=== PATIENT | male | born 1950 | race Caucasian/White ===

== ENCOUNTER 2019-05-02 02:22 | Observation (INO) ==
--- NOTE | 2019-05-02 03:17 | Internal Med History&Physical ---
Date of Encounter: 05/02/19 Time of Encounter: 03:16 Internal Medicine - H&P: HPI Chief complaint: tired Plans for Post Hospital Care: Home History of present illness: Dionte Weems is a 68 year old man who reports no past medical history transferred here from [facility] for anemia. He states that for the past 1 week he has been significantly more fatigued, lightheaded, dizzy and intolerant of exertion. He went to his PCP on who sent routine labs on Saturday morning recommended he go to the ER after it showed significant anemia. Over there he was old his Hgb was 5.2. His stool was positive for occult blood. He denies any abdominal pain, nausea, vomiting, hematemesis or noticing darker stool. He was given 2U pRBC prior to his arrival here. On my assessment he reports feeling well and has no complaints. Vitals: Reviewed General: Well-developed white male sitting up in the acute distress. Skin: Pale, Warm and dry. HEENT: Moist mucous membranes. + conjunctivae pallor. Neck: No lymphadenopathy. No JVD. No carotid bruits. No palpable thyroid. Chest: Normal thoracic expansion. Normal breath sounds. Clear to auscultation. Heart: Normal S1 & S2; rhythmic. No rubs or murmurs. Abdomen: Non-distended, soft and non-tender to palpation. No peritoneal reaction. Extremities: No clubbing, cyanosis or edema. No calf tenderness. Normal distal pulses. Neurological: Awake, alert and oriented to person, place and time. No focal d eficits. Psych: Affect appropriate. Assessment/Plan 1. Acute posthemorrhagic anemia: Secondary to GI bleed. S/p 2U pRBC. Will recheck H/H now and in 4 hours to assess for stability. Keep on IVF. 2. GI bleed: Unclear etiology. Concern that it may be a slow bleeding lesion from the upper tract, perhaps an AVM. All the same will consult GI for endoscopic evaluation, keep NPO and start pantoprazole 40mg BID. 3. RLS: On Requip. 4. DVT prophlaxis: Calf pumps. Past Med Surg Social Fam HX - Past Medical History Additional medical history: Restless leg syndrome Psychiatric history: no psych history - Past Surgical History Additional surgical history: bilateral inguinal hernia repair - Social History Smoking Status: Never smoker Smokeless Tobacco Status: No Alcohol use: occasionally Drug use: none Internal Medicine - H&P: Meds Requip 05/02/19 [History] Allergy/AdvReac Type Severity Reaction Status Date / Time No Known Allergies Allergy Verified 05/02/19 02:59 All Systems PM: A 10-system review of systems was performed and is negative for pertinent findings except as documented above in the HPI. Family history reviewed and found non-contributory. - Constitutional Vitals: Temp Pulse Resp BP Pulse Ox 98.4 F 74 18 125/74 99 05/02/19 02:57 05/02/19 02:57 05/02/19 02:57 05/02/19 02:57 05/02/19 02:57 Exam: . - Time Spent With Patient Total time spent is greater than 50% in coordination of care (as documented) at patient's floor/unit and/or counseling patient: Greater than 35 minutes
[2019-05-02] MEDS: 0.9 % Sodium Chloride 1,000 ML IVC SCH ×2 (04:06→12:29)
[2019-05-02 04:49] LABS: Basophils # 0.1 K/mcL (0.0-0.2); Basophils % 0.8 %; Eosinophils # 0.1 K/mcL (0.0-0.6); Eosinophils % 1.1 %; Hematocrit 25.9 % (37.5-50.1); Hemoglobin 7.5 g/dL (12.9-16.9); Immature Granulocytes % 0.4 % (0-4); Lymphocytes # 1.6 K/mcL (0.6-4.6); Lymphocytes % 22.9 %; Mean Corpuscular Volume 72.5 fL (83.0-100.0); Mean Platelet Volume 9.6 fL (9.4-12.4); Monocytes # 0.9 K/mcL (0.0-1.3); Monocytes % 12.7 %; Neutrophils # 4.4 K/mcL (1.6-8.9); Nucleated Red Blood Cells 0.4 /100 WBC (0); Platelet Count 371 K/mcL (140-400); Red Blood Count 3.57 M/mcL (4.19-5.50); Red Cell Distribution Width 19.6 % (11.5-14.5); Segmented Neutrophils % 62.1 %; White Blood Count 7.1 K/mcL (4.3-11.1)
[2019-05-02 04:56] LABS: Prothrombin Time 11.8 Seconds (9.4-12.1)
[2019-05-02 04:58] LABS: Activated Partial Thrombo Time 26.5 Seconds (26.0-36.0)
[2019-05-02 05:09] LABS: Alanine Aminotransferase 25 Units/L (7-52); Albumin/Globulin Ratio 1.6 (1.1-2.2); Alkaline Phosphatase 31 Units/L (34-104); Aspartate Amino Transferase 21 Units/L (13-39); BUN/Creatinine Ratio 13 (6-26); Bilirubin,Direct 0.2 mg/dL (0.0-0.2); Bilirubin,Indirect 0.7 mg/dL (0.0-1.2); Bilirubin,Total 0.9 mg/dL (0.3-1.0); Blood Urea Nitrogen 13 mg/dL (8-23); Calcium 8.8 mg/dL (8.6-10.3); Carbon Dioxide 22 mEq/L (23-29); Chloride 109 mEq/L (98-107); Globulin 2.5 g/dL (2.4-3.5); Glucose 113 mg/dL (70-105); Osmolality,Calculated 289 (280-300); Potassium 3.8 mEq/L (3.5-5.1); Sodium 139 mEq/L (136-145); Total Protein 6.5 g/dL (6.4-8.9); eGFR For African Americans > 60 (> 60); eGFR For Non-African Americans > 60 (> 60)
[2019-05-02] MEDS: Pantoprazole 40 MG VIAL IVP SCH ×2 (06:25→18:16)
[2019-05-02 08:01] LABS: Hematocrit 26.2 % (37.5-50.1); Hemoglobin 7.5 g/dL (12.9-16.9)
[2019-05-02 12:18] LABS: Hematocrit 26.2 % (37.5-50.1); Hemoglobin 7.5 g/dL (12.9-16.9)
--- NOTE | 2019-05-02 16:44 | Event Note ---
Date of Encounter: 05/02/19 Time of Encounter: 11:30 Mr Weems was admitted earlier this AM due to acute anemia and possible GI bleed. Mr Weems feels OK. His is up and walking around. Hungry. No fever or chills. Concerned about staying here till next week. Exam Alert Comfortable Mucus membranes dry Heart reg and not tachy No wheeze abd soft I/P 1. Anemia - most likely related to chronic blood loss. 2. Probable GI bleed. Agree with assessment and plan as per H&P
--- NOTE | 2019-05-02 17:02 | AcuteCare Surgery Consult Note ---
<Shavonne Smith P - Last Filed: 05/02/19 17:09> Date of Encounter: 05/02/19 Time of Encounter: 04:30 Assessment and Plan (1) GI bleed Current Visit: Yes Status: Acute * This patient has h./o fatigued, lightheaded, dizzy and intolerant of exertion. his Hgb was 5.2. His stool was positive for occult blood. * His hemoglobin at hospital is 7.5 and hematocrit 26.2 * Acute care surgical team was consulted for lower GI bleed. * His vitals are stable blood pressure 118/76, pulse 70/m Plan : We are planning to do a scope tomorrow : Bowel preparation and nothing by mouth from midnight : Trends labs including hemoglobin History of Present Illness Consult date: 05/02/19 Reason for consult: other History of present illness: He is 68 year old man who reports no past medical history transferred here from [facility] for anemia, He has h/o fatigued, lightheaded, dizzy and intolerant of exertion.His Hgb was 5.2. His stool was positive for occult blood. Acute Surgical team was consulted for suspected GI bleed. His hemoglobin at hospital is 7.5 and HCT 26.2, his vitals are stable. We are planning to do a scope tomorrow. He will be nothing by mouth from midnight and bowel preparation with MiraLAX. Past Med Surg Social Fam HX - Past Medical History Additional medical history: Restless leg syndrome Psychiatric history: no psych history - Past Surgical History Additional surgical history: bilateral inguinal hernia repair - Social History Smoking Status: Never smoker Smokeless Tobacco Status: No Alcohol use: occasionally Drug use: none Medications and Allergies Requip 05/02/19 [History] Allergy/AdvReac Type Severity Reaction Status Date / Time No Known Allergies Allergy Verified 05/02/19 02:59 Review of Systems All systems PM: The remainder of the systems were reviewed and are negative General Surgery Exam Initial Vital Signs Temp Pulse Resp BP Pulse Ox 98.4 F 74 18 125/74 99 05/02/19 02:57 05/02/19 02:57 05/02/19 02:57 05/02/19 02:57 05/02/19 02:57 - General physical appearance well nourished, no distress, moderate pain - Eyes PERRL, normal ocular movement - ENT normal mucosa - Neck trachea midline, no lymphadectomy - Respiratory normal expansion, normal respiratory effort, clear to percussion - Cardiovascular Cardiovascular exam: Present: RRR, regular rhythm, no murmurs/rubs/gallops - Abdomen Abdomen general surgery: Present: soft, non tender, distended, tender - Integumentary Integumentary general surgery: Present: warm and dry - Neurologic Present: CN 2-12 grossly intact, normal coordination, normal sensation - Musculoskeletal Present: normal gait, normal posture - Psychiatric Psychiatric general surgery: Present: A&Ox3, appropriate, oriented to person, oriented to place Exam Initial Vital Signs Temp Pulse Resp BP Pulse Ox 98.4 F 74 18 125/74 99 05/02/19 02:57 05/02/19 02:57 05/02/19 02:57 05/02/19 02:57 05/02/19 02:57 Results - Labs 05/02/19 11:59 05/02/19 04:08 Abnormal lab results RBC 3.57 M/mcL (4.19-5.50) L 05/02/19 04:08 Hgb 7.5 g/dL (12.9-16.9) L 05/02/19 11:59 Hct 26.2 % (37.5-50.1) L 05/02/19 11:59 MCV 72.5 fL (83.0-100.0) L 05/02/19 04:08 MCH 21.0 pg (28.0-33.3) L 05/02/19 04:08 MCHC 29.0 g/dL (31.6-35.5) L 05/02/19 04:08 RDW 19.6 % (11.5-14.5) H 05/02/19 04:08 Nucleated RBCs/100 WBC 0.4 /100 WBC (0) H 05/02/19 04:08 Chloride 109 mEq/L (98-107) H 05/02/19 04:08 Carbon Dioxide 22 mEq/L (23-29) L 05/02/19 04:08 Glucose 113 mg/dL (70-105) H 05/02/19 04:08 POC Glucose 116 mg/dL (70-99) H 05/02/19 05:47 31 Units/L (34-104) L 05/02/19 04:08 Diabetes panel 05/02/19 Range/Units 04:08 Sodium 139 (136-145) mEq/L Potassium 3.8 (3.5-5.1) mEq/L Chloride 109 H (98-107) mEq/L Carbon Dioxide 22 L (23-29) mEq/L BUN 13 (8-23) mg/dL Creatinine 0.99 (0.70-1.30) mg/dL Glucose 113 H (70-105) mg/dL Calcium 8.8 (8.6-10.3) mg/dL AST 21 (13-39) Units/L ALT 25 (7-52) Units/L Alkaline Phosphatase 31 L (34-104) Units/L Albumin 4.0 (3.5-5.7) g/dL Calcium panel 05/02/19 Range/Units 04:08 Calcium 8.8 (8.6-10.3) mg/dL Albumin 4.0 (3.5-5.7) g/dL Pituitary panel 05/02/19 Range/Units 04:08 Sodium 139 (136-145) mEq/L Potassium 3.8 (3.5-5.1) mEq/L Chloride 109 H (98-107) mEq/L Carbon Dioxide 22 L (23-29) mEq/L BUN 13 (8-23) mg/dL Creatinine 0.99 (0.70-1.30) mg/dL Glucose 113 H (70-105) mg/dL Calcium 8.8 (8.6-10.3) mg/dL Adrenal panel 05/02/19 Range/Units 04:08 Sodium 139 (136-145) mEq/L Potassium 3.8 (3.5-5.1) mEq/L Chloride 109 H (98-107) mEq/L Carbon Dioxide 22 L (23-29) mEq/L BUN 13 (8-23) mg/dL Creatinine 0.99 (0.70-1.30) mg/dL Glucose 113 H (70-105) mg/dL Calcium 8.8 (8.6-10.3) mg/dL Total Bilirubin 0.9 (0.3-1.0) mg/dL AST 21 (13-39) Units/L ALT 25 (7-52) Units/L Alkaline Phosphatase 31 L (34-104) Units/L Albumin 4.0 (3.5-5.7) g/dL All other labs normal. Consult Discharge Plan - Plan Referrals: NONE,PCP [Primary Care Provider] - <Juarez Bailey - Last Filed: 05/02/19 17:56> Date of Encounter: 05/02/19 Review of Systems All systems PM: The remainder of the systems were reviewed and are negative General Surgery Exam Initial Vital Signs Temp Pulse Resp BP Pulse Ox 98.4 F 74 18 125/74 99 05/02/19 02:57 05/02/19 02:57 05/02/19 02:57 05/02/19 02:57 05/02/19 02:57 Exam Initial Vital Signs Temp Pulse Resp BP Pulse Ox 98.4 F 74 18 125/74 99 05/02/19 02:57 05/02/19 02:57 05/02/19 02:57 05/02/19 02:57 05/02/19 02:57 Results - Labs 05/02/19 16:57 05/02/19 04:08 Abnormal lab results RBC 3.57 M/mcL (4.19-5.50) L 05/02/19 04:08 Hgb 7.4 g/dL (12.9-16.9) L 05/02/19 16:57 Hct 26.1 % (37.5-50.1) L 05/02/19 16:57 MCV 72.5 fL (83.0-100.0) L 05/02/19 04:08 MCH 21.0 pg (28.0-33.3) L 05/02/19 04:08 MCHC 29.0 g/dL (31.6-35.5) L 05/02/19 04:08 RDW 19.6 % (11.5-14.5) H 05/02/19 04:08 Nucleated RBCs/100 WBC 0.4 /100 WBC (0) H 05/02/19 04:08 Chloride 109 mEq/L (98-107) H 05/02/19 04:08 Carbon Dioxide 22 mEq/L (23-29) L 05/02/19 04:08 Glucose 113 mg/dL (70-105) H 05/02/19 04:08 POC Glucose 116 mg/dL (70-99) H 05/02/19 05:47 31 Units/L (34-104) L 05/02/19 04:08 Diabetes panel 05/02/19 Range/Units 04:08 Sodium 139 (136-145) mEq/L Potassium 3.8 (3.5-5.1) mEq/L Chloride 109 H (98-107) mEq/L Carbon Dioxide 22 L (23-29) mEq/L BUN 13 (8-23) mg/dL Creatinine 0.99 (0.70-1.30) mg/dL Glucose 113 H (70-105) mg/dL Calcium 8.8 (8.6-10.3) mg/dL AST 21 (13-39) Units/L ALT 25 (7-52) Units/L Alkaline Phosphatase 31 L (34-104) Units/L Albumin 4.0 (3.5-5.7) g/dL Calcium panel 05/02/19 Range/Units 04:08 Calcium 8.8 (8.6-10.3) mg/dL Albumin 4.0 (3.5-5.7) g/dL Pituitary panel 05/02/19 Range/Units 04:08 Sodium 139 (136-145) mEq/L Potassium 3.8 (3.5-5.1) mEq/L Chloride 109 H (98-107) mEq/L Carbon Dioxide 22 L (23-29) mEq/L BUN 13 (8-23) mg/dL Creatinine 0.99 (0.70-1.30) mg/dL Glucose 113 H (70-105) mg/dL Calcium 8.8 (8.6-10.3) mg/dL Adrenal panel 05/02/19 Range/Units 04:08 Sodium 139 (136-145) mEq/L Potassium 3.8 (3.5-5.1) mEq/L Chloride 109 H (98-107) mEq/L Carbon Dioxide 22 L (23-29) mEq/L BUN 13 (8-23) mg/dL Creatinine 0.99 (0.70-1.30) mg/dL Glucose 113 H (70-105) mg/dL Calcium 8.8 (8.6-10.3) mg/dL Total Bilirubin 0.9 (0.3-1.0) mg/dL AST 21 (13-39) Units/L ALT 25 (7-52) Units/L Alkaline Phosphatase 31 L (34-104) Units/L Albumin 4.0 (3.5-5.7) g/dL All other labs normal. - Attending Attestation patient seen and examined. i have reviewed all labs, imaging, and notes. i agree with the above assessment and plan.
[2019-05-02 17:10] LABS: Hematocrit 26.1 % (37.5-50.1); Hemoglobin 7.4 g/dL (12.9-16.9)
[2019-05-03] MEDS: Pantoprazole 40 MG VIAL IVP SCH (05:09)
[2019-05-03 05:30] LABS: Hemoglobin 7.5 g/dL (12.9-16.9)
[2019-05-03 05:31] LABS: Hematocrit 26.8 % (37.5-50.1); Mean Corpuscular Hemoglobin 20.4 pg (28.0-33.3); Mean Platelet Volume 9.4 fL (9.4-12.4); Platelet Count 404 K/mcL (140-400); Red Blood Count 3.67 M/mcL (4.19-5.50); Red Cell Distribution Width 19.6 % (11.5-14.5); White Blood Count 6.3 K/mcL (4.3-11.1)
[2019-05-03 06:21] LABS: BUN/Creatinine Ratio 9 (6-26); Blood Urea Nitrogen 10 mg/dL (8-23); Calcium 9.1 mg/dL (8.6-10.3); Carbon Dioxide 25 mEq/L (23-29); Chloride 109 mEq/L (98-107); Glucose 116 mg/dL (70-105); Magnesium 2.2 mg/dL (1.6-2.6); Osmolality,Calculated 290 (280-300); Potassium 3.7 mEq/L (3.5-5.1); Sodium 140 mEq/L (136-145); eGFR For African Americans > 60 (> 60); eGFR For Non-African Americans > 60 (> 60)
[2019-05-03] MEDS ORDERED: *HR* FentaNYL (PF) 100 MCG/2 ML VIAL ONE (07:44)
[2019-05-03] MEDS ORDERED: Simethicone 40 MG/0.6 ML MLS IR ONE (07:59)
[2019-05-03] MEDS ORDERED: Tetracaine/Benzocaine/Butamben 1 SPRAY AEROSOL MM ONE (08:03)
[2019-05-03] MEDS: *HR* Midazolam HCl 5 MG/5 ML VIAL IVP ONE ×2 (08:31→08:48)
[2019-05-03 11:32] VITALS: BP 122/80
--- NOTE | 2019-05-03 12:00 | Discharge Summary ---
- NOTES TO OUTPATIENT PROVIDER Notes to Outpatient Provider: Pt admitted with anemia. He underwent EGD/colonoscopy and had Grade 1 esophagitis. PPI started. 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 Weems is a 68 year old male transferred to [place] due to anemia. He was n oted to be guiac positive. Mr Weems was admitted to [facility]. He was started on fluids and H/H followed. He was seen by surgery and had EGD/colonoscopy. Found to have diverticulosis and [place] grade A esophagitis. His H/H is stable and he is ready for discharge home on PPI. - Time Spent with Patient Total time spent providing and/or coordinating discharge services: 35min - Discharge Medications Prescriptions: New Omeprazole [PriLOSEC] 40 mg PO DAILY@0630 #30 capsule.dr Stein Requip Home Medications: Requip 05/02/19 [History] Omeprazole [PriLOSEC] 40 mg PO DAILY@0630 #30 capsule. 05/03/19 [Rx] Allergies/Adverse Reactions: Allergy/AdvReac Type Severity Reaction Status Date / Time No Known Allergies Allergy Verified 05/02/19 02:59 Date of admission: 05/02/19 02:22 Primary care physician: PCP NONE Consults: 05/02/19 11:50 Consult to Surgery [CONS] Routine Consulting Provider: Juarez Bailey Reason for Consult: Acute GI bleed Call Completed: Yes Discharging clinician: Grey Montez Anticipated date of discharge: 05/03/19 - Constitutional Vitals: Temp Pulse Resp BP Pulse Ox 98.8 F 68 16 122/80 99 05/03/19 11:20 05/03/19 11:20 05/03/19 11:20 05/03/19 11:20 05/03/19 11:20 General appearance: Present: A&O X 3, answers questions appropriately Exam: See below - Head Head exam: Present: normocephalic - Eye Eye exam: Present: EOMI, conjuntiva pink - ENT ENT exam: Present: normal exam - Respiratory Respiratory exam: Present: CTAB. Absent: rales, rhonchi, wheezes - Cardiovascular Cardiovascular exam: Present: RRR. Absent: tachycardia - GI/Abdominal GI/Abdominal exam: Present: soft. Absent: tenderness - Extremities Exam Extremities exam: Present: warm. Absent: pedal edema, tenderness - Neurological Exam Neurological exam: Present: alert, oriented X3, no focal deficits - Skin Skin exam: Present: dry, warm - Patient Status Disposition: Home, Self-Care Condition: Good Functional capacity at discharge: independent ambulation Overall status at discharge: patient is progressing back to baseline - Discharge Instructions Follow Up With: NONE,PCP [Primary Care Provider] - Additional Instructions: No driving for 24 hours following sedation. Resume usual diet. Activity as tolerated. - Diet and Activity Activity: increase activity as tolerated Diet: advance to your usual diet
== END 2019-05-03 13:34 | disposition home or self-care (01) ==
LOC: 3ANU → SUATTDRO 02:22
PROVIDERS: ADMIT Internal Medicine; ATTEND Internal Medicine
PROC: ENDOEBX (2019-05-03 08:00)